=== PATIENT | female | born 1960 | race Hispanic/Latino ===

== ENCOUNTER 2017-11-17 21:49 | Inpatient (IN) | payer SELFPAY ==
[2017-11-17 22:17] LABS: BASOPHILS % (AUTO) 1.1 % (0.0-5.0); EOSINOPHILS % (AUTO) 3.1 % (0.0-8.0); HEMATOCRIT 22.7 % (36-48); LYMPHOCYTES % (AUTO) 30.8 % (21.0-51.0); MEAN CORPUSCULAR HEMOGLOBIN 21.7 pg (27.0-33.0); MEAN CORPUSCULAR HGB CONC 31.5 g/dL (32.0-36.0); MEAN CORPUSCULAR VOLUME 68.8 fL (79-99); MONOCYTES % (AUTO) 11.5 % (3.0-13.0); NEUTROPHILS % (AUTO) 53.5 % (40.0-77.0); PLATELET COUNT (AUTO) 105 K/uL (130-400); RED CELL DISTRIBUTION WIDTH 19.6 % (11.0-15.5); WHITE BLOOD COUNT (AUTO) 7.3 K/uL (4.8-10.8)
[2017-11-17 22:30] LABS: CREATININE 0.9 mg/dL (0.5-1.5); POTASSIUM 4.5 mmol/L (3.5-5.1)
[2017-11-17 22:33] LABS: INR 1.05 (0.85-1.15); PARTIAL THROMBOPLASTIN TIME 26.1 SEC (26.3-35.5)
[2017-11-17] MEDS ORDERED: ONDANSETRON HCL MDV 20ML 2 MG/ML VIAL ONE (22:42)
[2017-11-17] MEDS ORDERED: MORPHINE SULFATE 4 MG/1ML SYG ONE (22:43)
[2017-11-17 22:44] LABS: ALBUMIN 2.9 g/dL (3.5-5.0); BILIRUBIN,TOTAL 0.4 mg/dL (0.2-1.0); CREATINE KINASE MB 0.5 ng/mL (0.5-3.6); TOTAL PROTEIN, SERUM 6.8 g/dL (6.0-8.3)
[2017-11-17] MEDS ORDERED: ASPIRIN 325 MG TABLET ONE (23:54)
[2017-11-17] MEDS ORDERED: LORAZEPAM 2 MG/ML 1 ML VIAL ONE (23:56)
[2017-11-18] VITALS (7 sets, daily range): BP systolic 107–145; BP diastolic 54–82
[2017-11-18] MEDS ORDERED: LORAZEPAM 2 MG/ML 1 ML VIAL IVP PRN (02:00)
[2017-11-18] MEDS ORDERED: ASPIRIN 325 MG TABLET PO SCH (02:00)
[2017-11-18] MEDS ORDERED: SODIUM CHLORIDE 0.9% 500ML 500 ML IV SCH (02:00)
[2017-11-18] MEDS ORDERED: LEVO50 PO (03:45)
[2017-11-18 05:06] LABS: HEMATOCRIT 20.2 % (36-48)
[2017-11-18] MEDS ORDERED: SODIUM CHLORIDE 0.9% 250 ML IV ONE (06:04)
[2017-11-18] MEDS: SODIUM CHLORIDE 0.9% 1000ML 1,000 ML IV SCH ×3 (06:26→22:00)
[2017-11-18 07:09] LABS: % IRON SATURATION 5.6 % (22-44)
[2017-11-18] MEDS: LACTULOSE 20 GM/30 ML UDCUP PO SCH (13:31)
[2017-11-18] MEDS ORDERED: LACTULOSE 20 GM/30 ML UDCUP PO SCH (14:00)
[2017-11-18] MEDS: FAMOTIDINE/PF 20 MG/2 ML VIAL IV SCH ×2 (14:03→20:22)
[2017-11-18] MEDS ORDERED: MAGNESIUM CITRATE 296 ML SOLUTION PO SCH (15:00)
[2017-11-18] MEDS ORDERED: PEG 3350/NA SULF,BICARB,CL/KCL 4000 ML SOLN PO SCH (16:00)
[2017-11-18] MEDS ORDERED: BISACODYL 5 MG TABLET.DR PO SCH (17:00)
[2017-11-19] VITALS (15 sets, daily range): BP systolic 99–157; BP diastolic 46–79
[2017-11-19] MEDS: LACTULOSE 20 GM/30 ML UDCUP PO SCH (12:00)
[2017-11-19] MEDS ORDERED: MIDAZOLAM HCL 1 MG/ML 2ML VIAL ONE (13:27)
[2017-11-19] MEDS ORDERED: PROPOFOL 10 MG/ML 20ML VIAL IV ONE ×2 (13:27)
[2017-11-19] MEDS ORDERED: FENTANYL CITRATE PF 50 MCG/1 ML 2ML VIAL ONE (13:27)
[2017-11-19] MEDS ORDERED: LACTULOSE 20 GM/30 ML UDCUP PO SCH (16:15)
[2017-11-19] MEDS: FAMOTIDINE/PF 20 MG/2 ML VIAL IV SCH ×2 (16:16→20:16)
[2017-11-19] MEDS ORDERED: LACTULOSE 20 GM/30 ML UDCUP PO PRN (16:30)
[2017-11-19] MEDS ORDERED: MAGNESIUM CITRATE 296 ML SOLUTION PO SCH (17:00)
[2017-11-19] MEDS ORDERED: PEG 3350/NA SULF,BICARB,CL/KCL 4000 ML SOLN PO SCH (18:00)
[2017-11-19] MEDS ORDERED: BISACODYL 5 MG TABLET.DR PO SCH (19:00)
[2017-11-20] VITALS (17 sets, daily range): BP systolic 100–161; BP diastolic 57–76
[2017-11-20 07:06] LABS: HEMATOCRIT 28.7 % (36-48); MEAN CORPUSCULAR HEMOGLOBIN 24.2 pg (27.0-33.0); MEAN CORPUSCULAR HGB CONC 33.2 g/dL (32.0-36.0); NUCLEATED RED BLOOD CELLS 0.1 % (0.0-0.19); PLATELET COUNT (AUTO) 90 K/uL (130-400); RED BLOOD CELL COUNT(AUTO) 3.94 MIL/uL (4.00-5.50); RED CELL DISTRIBUTION WIDTH 21.3 % (11.0-15.5)
[2017-11-20 07:51] LABS: CREATININE 0.9 mg/dL (0.5-1.5); POTASSIUM 4.2 mmol/L (3.5-5.1)
[2017-11-20] MEDS: PANTOPRAZOLE SODIUM 40 MG TABLET.DR PO SCH (08:59)
[2017-11-20] MEDS: FAMOTIDINE/PF 20 MG/2 ML VIAL IV SCH ×2 (08:59→20:49)
[2017-11-20] MEDS ORDERED: MEPERIDINE-PF 50 MG/ML SYG ONE (17:32)
[2017-11-20] MEDS ORDERED: MIDAZOLAM HCL 1 MG/ML 2ML VIAL ONE ×2 (17:33→18:23)
[2017-11-20] MEDS ORDERED: HEMORRHOIDAL OINTMENT 57 GM CREAM.GM. RC SCH (21:00)
[2017-11-21 04:05] VITALS: BP 118/60
[2017-11-21 05:50] LABS: BASOPHILS % (AUTO) 1.2 % (0.0-5.0); HEMATOCRIT 29.7 % (36-48); LYMPHOCYTES % (AUTO) 28.1 % (21.0-51.0); MEAN CORPUSCULAR HEMOGLOBIN 23.4 pg (27.0-33.0); MEAN CORPUSCULAR HGB CONC 31.9 g/dL (32.0-36.0); MEAN CORPUSCULAR VOLUME 73.2 fL (79-99); MONOCYTES % (AUTO) 10.1 % (3.0-13.0); NEUTROPHILS % (AUTO) 56.6 % (40.0-77.0); PLATELET COUNT (AUTO) 84 K/uL (130-400); RED BLOOD CELL COUNT(AUTO) 4.06 MIL/uL (4.00-5.50); RED CELL DISTRIBUTION WIDTH 21.2 % (11.0-15.5); WHITE BLOOD COUNT (AUTO) 5.4 K/uL (4.8-10.8)
[2017-11-21 06:10] LABS: CREATININE 0.8 mg/dL (0.5-1.5); POTASSIUM 4.3 mmol/L (3.5-5.1)
[2017-11-21 08:00] VITALS: BP 136/74
[2017-11-21] MEDS: PANTOPRAZOLE SODIUM 40 MG TABLET.DR PO SCH (08:40)
[2017-11-21] MEDS: FAMOTIDINE/PF 20 MG/2 ML VIAL IV SCH (08:40)
[2017-11-21 12:00] VITALS: BP 124/76
== END 2017-11-21 12:35 | disposition home or self-care (01) | DRG 393 ==
LOC: EDH 21:49 → EDHIP 21:50 → 3DH 11-18 01:00
PROVIDERS: ADMIT Family Medicine; ATTEND Family Medicine
PROC: 30233N1 Transfusion of Nonautologous Red Blood Cells into Peripheral Vein, Percutaneous Approach (ICD-10-PCS; principal; 2017-11-18)
PROC: 0DBK8ZZ Excision of Ascending Colon, Via Natural or Artificial Opening Endoscopic (ICD-10-PCS; 2017-11-19)
PROC: 0DB98ZX Excision of Duodenum, Via Natural or Artificial Opening Endoscopic, Diagnostic (ICD-10-PCS; 2017-11-19)
PROC: 0DB68ZX Excision of Stomach, Via Natural or Artificial Opening Endoscopic, Diagnostic (ICD-10-PCS; 2017-11-19)
PROC: 0DB58ZX Excision of Esophagus, Via Natural or Artificial Opening Endoscopic, Diagnostic (ICD-10-PCS; 2017-11-19)
PROC: 0DBK8ZZ Excision of Ascending Colon, Via Natural or Artificial Opening Endoscopic (ICD-10-PCS; 2017-11-20)
DX: D12.2 Benign neoplasm of ascending colon (principal); K27.4 Chronic or unspecified peptic ulcer, site unspecified, with hemorrhage; D62 Acute posthemorrhagic anemia; D50.9 Iron deficiency anemia, unspecified; E03.9 Hypothyroidism, unspecified; F41.9 Anxiety disorder, unspecified; F32.9 Major depressive disorder, single episode, unspecified; I10 Essential (primary) hypertension; K55.20 Angiodysplasia of colon without hemorrhage; K64.0 First degree hemorrhoids; D12.3 Benign neoplasm of transverse colon; K29.00 Acute gastritis without bleeding; K21.9 Gastro-esophageal reflux disease without esophagitis; Z80.0 Family history of malignant neoplasm of digestive organs
CPT/HCPCS: 36415; 36430; 71045; 80048; 80053; 82270; 82550; 82553; 82728; 83540; 83550; 83874; 84484; 85014; 85018; 85025; 85027; 85378; 85610; 85730; 86850; 86900; 86901; 86922; 88305; 88312; 93005; 93306; 99152; 99153; C9113; J2060; J2175; J2250; J2270; J2704; J3010; J3490; J7030; P9016

== ENCOUNTER 2018-07-16 18:37 | Emergency (ER) | payer MEDICAID, SELFPAY ==
[~2018-07-16 18:37] MED LIST: LEVO50 PO
[2018-07-16 20:02] LABS: BASOPHILS % (AUTO) 0.8 % (0.0-5.0); EOSINOPHILS % (AUTO) 3.4 % (0.0-8.0); HEMATOCRIT 33.2 % (36-48); LYMPHOCYTES % (AUTO) 37.5 % (21.0-51.0); MEAN CORPUSCULAR HEMOGLOBIN 26.7 pg (27.0-33.0); MEAN CORPUSCULAR HGB CONC 33.1 g/dL (32.0-36.0); MEAN CORPUSCULAR VOLUME 80.6 fL (79-99); MONOCYTES % (AUTO) 8.5 % (3.0-13.0); NEUTROPHILS % (AUTO) 49.8 % (40.0-77.0); NUCLEATED RED BLOOD CELLS 0.1 % (0.0-0.19); PLATELET COUNT (AUTO) 62 K/uL (130-400); RED BLOOD CELL COUNT(AUTO) 4.12 MIL/uL (4.00-5.50); WHITE BLOOD COUNT (AUTO) 4.4 K/uL (4.8-10.8)
[2018-07-16 20:12] LABS: CREATININE 0.8 mg/dL (0.5-1.5); POTASSIUM 3.7 mmol/L (3.5-5.1)
[2018-07-16] MEDS ORDERED: LORAZEPAM 1 MG TABLET ONE (20:15)
[2018-07-16 20:17] LABS: ALBUMIN 3.3 g/dL (3.5-5.0); BILIRUBIN,TOTAL 0.8 mg/dL (0.2-1.0); TOTAL PROTEIN, SERUM 7.6 g/dL (6.0-8.3)
[2018-07-16 20:33] LABS: B-TYPE NATRIURETIC PEPTIDE 18 pg/mL (0-100)
[2018-07-16 21:11] LABS: PLATELET MORPHOLOGY COMMENT DECREASED
== END 2018-07-16 22:20 | disposition home or self-care (01) ==
LOC: EDH 18:37
DX: F41.8 Other specified anxiety disorders (principal); R13.10 Dysphagia, unspecified; E07.9 Disorder of thyroid, unspecified; Z87.891 Personal history of nicotine dependence
CPT/HCPCS: 36415; 71045; 80053; 83880; 84484; 85025; 87880; 93005